=== PATIENT | male | born 1985 | race American Indian/Alaskan Native ===

== ENCOUNTER 2017-12-10 19:53 | Emergency (ER) | payer SELFPAY ==
[2017-12-10] MEDS ORDERED: MOTRIN PO ONE (20:44)
[2017-12-10] MEDS ORDERED: MOTRIN ONE (20:46)
--- NOTE | 2017-12-10 22:06 | XRay Report ---
FINAL REPORT EXAM: XR SPINE LUMBOSACRAL 2-3V HISTORY: Back pain after lifting COMPARISON: None available. FINDINGS: 5 total images of the lumbar spine obtained. Lumbar vertebral body heights and disc heights are preserved. Pedicles are intact. No spondylolisthesis. IMPRESSION: Normal height and alignment of the lumbar spine.
[2017-12-11 05:20] VITALS: BP 150/86
[2017-12-11] MEDS ORDERED: TORADOL IM ONE (05:36)
--- NOTE | 2017-12-11 05:41 | Emergency Department Report ---
ED Back Pain/Injury HPI - General Chief Complaint: Back Pain/Injury Stated Complaint: LEFT LEG,BACK PAIN Time Seen by Provider: 12/11/17 05:35 Source: patient Limitations: No Limitations - History of Present Illness Initial Comments: Patient to 11-year-old -[place] male who presents for left low back pain radiating to his left leg for 5 daysb patient states he was getting out of bed and felt a pull in his back now with burning tingling in his low back radiating to his buttocks to his left leg there is no weakness no swelling no decrease or loss in bowel or bladder function. There is no fever chills no abdominal pain no headache or dizziness MD Complaint: back pain, back injury Similar Symptoms Previously: Yes Place: home Radiation: left leg Severity: moderate Severity scale (0 -10): 4 Quality: burning, aching Consistency: intermittent Improves With: none Worsens With: none, movement, other (bending twisting) Context: turning/twisting, bending Associated Symptoms: denies: numbness, difficulty urinating, incontinence, fever /chills - Related Data Previous Rx's Medication Instructions Recorded Last Taken Type Cyclobenzaprine [Flexeril] 10 mg PO BID PRN #20 tablet 12/11/17 Unknown Rx Menthol/Camphor [[place] 1 applicatio TP TID PRN #1 tube 12/11/17 Unknown Rx Ointment] Naproxen 500 mg PO BID PRN #30 tablet 12/11/17 Unknown Rx Allergies Allergy/AdvReac Type Severity Reaction Status Date / Time shellfish derived Allergy Hives Verified 12/10/17 20:29 ED Review of Systems ROS: Stated complaint: LEFT LEG,BACK PAIN Other details as noted in HPI Constitutional: denies: chills, fever Eyes: denies: eye pain, eye discharge, vision change ENT: denies: ear pain, throat pain Respiratory: denies: cough, shortness of breath, wheezing Cardiovascular: denies: chest pain, palpitations Endocrine: no symptoms reported Gastrointestinal: denies: abdominal pain, nausea, diarrhea Genitourinary: denies: urgency, dysuria Musculoskeletal: back pain Skin: denies: rash, lesions Neurological: denies: headache, weakness, numbness, paresthesias, confusion, abnormal gait, vertigo Psychiatric: denies: anxiety, depression Hematological/Lymphatic: denies: easy bleeding, easy bruising ED Past Medical Hx - Past Medical History Previous Medical History?: Yes Hx Seizures: Yes (last seizure when he was 18 years old) - Surgical History Past Surgical History?: No - Social History Smoking Status: Never Smoker - Medications Home Medications: Home Medications Medication Instructions Recorded Confirmed Last Taken Type Cyclobenzaprine [Flexeril] 10 mg PO BID PRN #20 tablet 12/11/17 Unknown Rx Menthol/Camphor [[place] 1 applicatio TP TID PRN #1 tube 12/11/17 Unknown Rx Ointment] Naproxen 500 mg PO BID PRN #30 tablet 12/11/17 Unknown Rx ED Physical Exam - General Limitations: No Limitations General appearance: alert, in no apparent distress - Head Head exam: Present: atraumatic, normocephalic - Eye Eye exam: Present: normal appearance - ENT ENT exam: Present: mucous membranes moist - Neck Neck exam: Present: normal inspection - Respiratory Respiratory exam: Present: normal lung sounds bilaterally. Absent: respiratory distress - Cardiovascular Cardiovascular Exam: Present: regular rate, normal rhythm. Absent: systolic murmur, diastolic murmur, rubs, gallop - GI/Abdominal GI/Abdominal exam: Present: soft, normal bowel sounds. Absent: distended, tenderness, organomegaly - Rectal Rectal exam: Present: deferred - Extremities Exam Extremities exam: Present: normal inspection, full ROM, pedal edema, joint swelling. Absent: tenderness, normal capillary refill - Back Exam Back exam: Present: normal inspection, tenderness, muscle spasm, paraspinal tenderness. Absent: CVA tenderness (R), CVA tenderness (L), vertebral tenderness, rash noted - Expanded Back Exam Expanded Back exam: Absent: saddle anesthesia Back exam: Positive Straight Leg Raise: Left, Right, Negative Straight Leg Raising: Right - Neurological Exam Neurological exam: Present: alert, oriented X3, CN II-XII intact, normal gait, reflexes normal. Absent: motor sensory deficit - Expanded Neurological Exam Expanded Patient oriented to: Present: person, place, time Speech: Present: fluid speech Cranial nerves: EOM's Intact: Normal, Gag Reflex: Normal, Tongue Deviation: Normal, Nystagmus: Normal, Facial Sensation: Normal, Facial Palsy with Forehead Movement: Normal, Facial Palsy without Forehead Movement: Normal Cerebellar function: Finger to Nose: Normal, Heel to [place]: Normal, Romberg: Normal Upper motor neuron: Terry Neglect: Normal, Pronator Drift: Normal, Babinski Sign : Normal, Sensory Extinction: Normal Sensory exam: Upper Extremity Light Touch: Normal, Upper Extremity Pin Prick: Normal, Upper Extremity Temperature: Normal, UE 2 Point Discrimination: Normal, Lower Extremity Light Touch: Normal, Lower Extremity Pin Prick: Normal, Lower Extremity Temperature: Normal, LE 2 Point Discrimination: Normal Motor strength exam: RUE: 5, LUE: 5, RLE: 5, LLE: 5 DTR: bicep (R): 2+, bicep (L): 2+, tricep (R): 2+, tricep (L): 2+, knee (R): 2+ , knee (L): 2+, ankle (R): 2+, ankle (L): 2+ Best Eye Response (Lafe): (4) open spontaneously Best Motor Response (Lafe): (6) obeys commands Best Verbal Response (Ash): (5) oriented Lafe Total: 15 - Psychiatric Psychiatric exam: Present: normal affect, normal mood - Skin Skin exam: Present: warm, dry, intact, normal color. Absent: rash ED Course Vital Signs 12/10/17 12/10/17 12/11/17 20:35 20:45 05:19 Temperature 97.5 F L Pulse Rate 64 70 Respiratory 14 20 18 Rate Blood Pressure 151/86 Blood Pressure 150/86 [Right] O2 Sat by Pulse 100 98 Oximetry Critical care attestation.: If time is entered above; I have spent that time in minutes in the direct care of this critically ill patient, excluding procedure time. ED Disposition Clinical Impression: Low back strain Qualifiers: Encounter type: initial encounter Qualified Code(s): S39.012A - Strain of muscle, fascia and tendon of lower back, initial encounter Disposition: TO HOME OR SELFCARE Is pt being admited?: No Does the pt Need Aspirin: No Condition: Good Prescriptions: Cyclobenzaprine [Flexeril] 10 mg PO BID PRN #20 tablet PRN Reason: Muscle Spasm Menthol/Camphor [[place] Ointment] 1 applicatio TP TID PRN #1 tube PRN Reason: Spasms Naproxen 500 mg PO BID PRN #30 tablet PRN Reason: Pain , Severe (7-10) Referrals: PRIMARY CARE,MD [Primary Care Provider] - 3-5 Days Forms: Work/School Release Form(ED) Time of Disposition: 05:49
== END 2017-12-11 06:47 | disposition home or self-care (01) ==
LOC: ED 19:53
DX: S39.012A Strain of muscle, fascia and tendon of lower back, initial encounter (principal); X50.1XXA Overexertion from prolonged static or awkward postures, initial encounter; Y93.89 Activity, other specified; Y99.8 Other external cause status; Y92.018 Other place in single-family (private) house as the place of occurrence of the external cause
CPT/HCPCS: 72100; 96372; 99283; J1885